=== PATIENT | male | born 1950 | race Caucasian/White ===

== ENCOUNTER → 2020-03-17 | Outpatient (CLI) | payer MEDICARE, OTHER ==
[~2020-03-17] MED LIST: ASPI81EC; ASPIRIN 32325 MG/TAB PO; ASPIRIN E.C. 8181 MG PO; ATENOLOL; ATORVASTATIN; COLESTID 1GM1 G PO; FIBER THERAPY0.52 GM PO; FLEXERIL10 MG PO; GLUCOSAMINE & C1 TA2 PO; LIPITOR 80MG80 MG PO; LOPRESSOR 225 MG/TAB PO; LOPRESSOR 550 MG/TAB PO; MAX-EPA1000 MG PO; METAMUCIL1 PDR PO; MOTRIN800 MG PO; MULTIPLE VITAMI1 TAB PO; PLAVIX 75MG TAB75 MG PO
== END ==
LOC: COL.RAD
DX: R97.20 Elevated prostate specific antigen [PSA] (principal)
CPT/HCPCS: A9503; Q9967